=== PATIENT | female | born 1995 | race Caucasian/White ===

== ENCOUNTER 2020-11-06 14:00 | Emergency (ER) | payer SELFPAY ==
[~2020-11-06] VITALS: Ht 170.2 cm; Wt 61.2 kg
[2020-11-06] MEDS ORDERED: TDAP DIPH,PERTUSS,TET VAC/PF 0.5 ML DISP.SYRIN IM ONE ×2 (15:00→15:07)
[2020-11-06] MEDS ORDERED: NAPROXEN 500 MG TABLET PO ONE (15:00)
[2020-11-06] MEDS ORDERED: NAPROXEN 500 MG TABLET ONE (15:07)
[2020-11-06] MEDS ORDERED: LIDOCAINE HCL 2% 20 ML VIAL ONE (15:35)
[2020-11-06 16:43] LABS: *BILIRUBIN,URIN NEGATIVE (NEGATIVE); *BLOOD, URINE NEGATIVE (NEGATIVE); *CLARITY,URINE CLEAR (CLEAR); *COLOR,URINE YELLOW (YELLOW); *KETONES,URINE TRACE (NEGATIVE); *URINE HCG, QUAL NEGATIVE (NEGATIVE); *UROBILINOGEN,URINE 0.2 E.U./dl (NORMAL); LEUKOCYTE ESTERASE ,URINE TRACE (NEGATIVE); NITRITE, URINE NEGATIVE (NEGATIVE); UGLUCOSE NEGATIVE (NEGATIVE)
[2020-11-06 16:58] LABS: BACTERIA,URINE NONE SEEN /HPF (NONE SEEN); RBC,URINE 0-3 /HPF (0-3); SQUAMOUS EPITHELIAL CELL,UR FEW /HPF (NONE SEEN); URINE AMORPHOUS PHOSPHATES FEW /HPF
--- NOTE | 2020-11-06 17:16 | NUR ---
Patient discharged to home in stable condition. Written and verbal after care instructions given. Patient verbalizes understanding of instructions. Stressed follow up or return to ER for worsening s/s.
== END 2020-11-06 17:19 | disposition home or self-care (01) ==
LOC: ER 14:00
DX: S61.411A Laceration without foreign body of right hand, initial encounter (principal); S61.511A Laceration without foreign body of right wrist, initial encounter; W25.XXXA Contact with sharp glass, initial encounter; Y92.89 Other specified places as the place of occurrence of the external cause; R50.9 Fever, unspecified; Z20.822 Contact with and (suspected) exposure to COVID-19
CPT/HCPCS: 12004; 73130 ×2; 81001; 84703; 87086; 90471; 90715; 99284; J3490; U0003; A4217; A4663

== ENCOUNTER 2020-11-08 15:12 | Emergency (ER) | payer SELFPAY ==
[~2020-11-08] VITALS: Ht 170.2 cm; Wt 61.2 kg
--- NOTE | 2020-11-08 15:43 | NUR ---
removed the dressing, new non-adhessive dressing placed, followed by colles splint per md order
== END 2020-11-08 15:44 | disposition home or self-care (01) ==
LOC: ER 15:12
DX: S61.411D Laceration without foreign body of right hand, subsequent encounter (principal); W45.8XXD Other foreign body or object entering through skin, subsequent encounter
CPT/HCPCS: A4663

== ENCOUNTER 2020-11-18 14:39 | Emergency (ER) | payer MEDICAID ==
[~2020-11-18] VITALS: Ht 170.2 cm; Wt 61.2 kg
--- NOTE | 2020-11-18 14:40 | NUR ---
PT AMBULATED TO ER FOR SUTURE REMOVAL ON RIGHT HAND. NO REDNESS/ OR S/S OF INFECTION NOTED. NO SOB OR LABORED BREATHING, AFEBRILE. DENIES PAIN/DISCOMFORT. DR. LOCKE AT BEDSIDE, MSE IN PROGRESS.
--- NOTE | 2020-11-18 15:37 | NUR ---
Patient discharged to home in stable condition. Denies any pain/discomfort upon discharge. Written and verbal after care instructions given. Patient verbalizes understanding of instructions. Stressed follow up or return to ER for worsening s/s. Steady gait.
[2020-11-18 15:40] VITALS: BP 120/71
== END 2020-11-18 15:38 | disposition home or self-care (01) ==
LOC: ER 14:40
DX: S61.411D Laceration without foreign body of right hand, subsequent encounter (principal); W01.110D Fall on same level from slipping, tripping and stumbling with subsequent striking against sharp glass, subsequent encounter
CPT/HCPCS: A4663